=== PATIENT | female | born 1980 | race Caucasian/White ===

== ENCOUNTER 2023-05-04 08:41 | Emergency (ER) | payer OTHER ==
[~2023-05-04] VITALS: Ht 167.6 cm; Wt 107.0 kg
[~2023-05-04 08:41] MED LIST: AMOX-430 PO; ESTR1TAB21 PO; HYDR-3980 PO; ONDA4TAB5 PO
[2023-05-04 08:53] VITALS: O2SAT 99
[2023-05-04] MEDS ORDERED: PIPERACILLIN SODIUM/TAZOBACTAM 3.375 G in IV DEXTROSE 5% 50 ML IV ONE (09:15)
[2023-05-04] MEDS ORDERED: IV NORMAL SALINE 1000 ML BAG IV ONE (09:15)
[2023-05-04] MEDS ORDERED: ONDANSETRON 4 MG/2 ML VIAL IV ONE (09:15)
[2023-05-04] MEDS ORDERED: MORPHINE SULFATE 2 MG/1 ML DISP.SYRIN IV ONE (09:15)
[2023-05-04] MEDS ORDERED: ONDANSETRON 4 MG/2 ML VIAL ONE (09:26)
[2023-05-04] MEDS ORDERED: MORPHINE SULFATE 4 MG/1 ML DISP.SYRIN ONE (09:27)
[2023-05-04] MEDS ORDERED: PIPERACILLIN/TAZOBACTAM/D5W 50 ML IV ONE (09:27)
[2023-05-04 09:43] LABS: HEMATOCRIT 35.7 % (31.2-41.9); MEAN CORPUSCULAR HEMOGLOBIN 27.9 uug (24.7-32.8); PLATELET COUNT (AUTO) 365 K/uL (179-408)
[2023-05-04] MEDS ORDERED: SWABABLE VALVE TRANSFER SET EA MC ONE (09:51)
[2023-05-04] MEDS ORDERED: IOHEXOL 300MG/ML 100 ML INFUS..BTL ONE (09:51)
[2023-05-04] MEDS ORDERED: IV NORMAL SALINE 250 ML IV ONE (09:51)
[2023-05-04 10:01] LABS: BILIRUBIN,DIRECT 0.1 mg/dL (0.0-0.2); BILIRUBIN,TOTAL 0.4 mg/dL (0.2-1.0); CREATININE 0.7 mg/dL (0.6-1.3); POTASSIUM 3.4 mmol/L (3.5-5.1)
[2023-05-04 10:01] LABS: *BILIRUBIN,URIN NEGATIVE (NEGATIVE); *BLOOD, URINE NEGATIVE (NEGATIVE); *CLARITY,URINE CLEAR (CLEAR); *COLOR,URINE YELLOW (YELLOW); *KETONES,URINE NEGATIVE (NEGATIVE); *UROBILINOGEN,URINE 0.2 E.U./dl (NORMAL); LEUKOCYTE ESTERASE ,URINE NEGATIVE (NEGATIVE); NITRITE, URINE NEGATIVE (NEGATIVE); PH,URINE 5.5 (5.0-8.0); UGLUCOSE NEGATIVE (NEGATIVE)
== END 2023-05-04 11:29 | disposition home or self-care (01) ==
LOC: ER 08:41
DX: K57.32 Diverticulitis of large intestine without perforation or abscess without bleeding (principal); E87.6 Hypokalemia; Z90.49 Acquired absence of other specified parts of digestive tract; Z90.710 Acquired absence of both cervix and uterus; Z79.2 Long term (current) use of antibiotics; Z79.899 Other long term (current) drug therapy
CPT/HCPCS: 36415; 83605; 83690; 85025; 87040; 93005; A4663; J2270; J2405; J2543; J7040; Q9967